=== PATIENT | female | born 1995 | race Caucasian/White ===

== ENCOUNTER 2025-04-03 18:18 | Emergency (ER) | payer OTHER, BC, SELFPAY ==
[2025-04-03 18:21] VITALS: BP 126/84
[2025-04-03 19:08] VITALS: BMI 32.1
--- NOTE | 2025-04-03 19:53 | ED.GENMED ---
History of Present Illness
General
Chief Complaint: Crisis Evaluation
Source: patient
Exam Limitations: none
Time Seen by Provider: 04/03/25 18:42
Nursing documentation reviewed up to this point in time: agreed with
History of Present Illness
History of Present Illness:
29-year-old female with history as noted presents for evaluation of suicidal ideation. Patient reports that she has had significant recent stressors including from her , loss of her job, having to move in with her aunt. She says
that over the past few days she has had suicidal ideations although she denies any specific plan. She denies any homicidal ideations. She denies any hallucinations. She denies any drug or alcohol use.
Review of Systems
Review of Systems
All Other Systems: ROS reviewed and negative except as documented in HPI and ROS
Psychiatric: Reports depression, anxiety and suicidal; Denies hallucinations
Phy Exam
Physical Exam
Physical Exam:
General: Well appearing and non-toxic
HEENT: protecting airway
Neck: appears supple
CV: No evidence of cyanosis
Resp: No accessory muscle use
Abd: Non-distended
Extremities: No deformities
Neuro: Alert
Psych: 'Numb' mood, flattened affect
Skin: Intact
Scores
Heart Failure Risk
Heart Failure Risk Score: Not Applicable
Heart Score for Chest Pain Patients
STEMI patient?: Not applicable
Withdrawal Assessment of Alcohol
Withdrawal Assessment Completed?: Not applicable
Course
Orders/Labs/Results
Orders:
Orders
04/03/25 18:20
1:1 Observation - Suicide/ Violent Behavior As Directed
04/03/25 18:21
Crisis Consult Urgent
Reason for Consult: +SI
04/03/25 18:43
Drug Screen, Urine [Urine Drug Abuse Screen] Urgent
HCG, Urine Qualitative Screen Urgent
Test Result ONCE
Vital Signs
Initial and Last Documented VS:
Initial Vital Signs
Temp Pulse Resp BP Pulse Ox
36.8 C 109 20 126/84 97
04/03/25 18:21 04/03/25 18:21 04/03/25 18:21 04/03/25 18:21 04/03/25 18:21
Last Documented Vital Signs
Temp Pulse Resp BP Pulse Ox
36.8 C 109 20 126/84 97
04/03/25 18:21 04/03/25 18:21 04/03/25 18:21 04/03/25 18:21 04/03/25 19:57
MDM/Problems Addressed
Differential Diagnosis Includes:
Suicidal ideation
MDM/Problems Addressed:
29-year-old female presents with suicidal ideation without specific plan. Case discussed with crisis for consultation. Will monitor on continuous observation. Will send UDS, screening test. Medically cleared for psychiatric treatment.
Patient seen by crisis staff�offered for inpatient versus partial outpatient/intensive outpatient. Patient does not feel she needs inpatient psychiatric treatment feels comfortable with intensive outpatient plan. She does not have a specific plan
and was able to contract for safety. She has family support in the form of her aunt, [id number], [id number]. Crisis provided referral/resources for intensive outpatient treatment. I think this is a reasonable plan; certainly I do not see
any grounds for involuntary psychiatric commitment at this point.
Chronic conditions affecting care:
Depression and anxiety
*Pulse Oximetry
SaO2: 97
Oxygen Mode of Delivery: Room air
Patient hypoxic: no (97%)
*Critical Care Note
Total Time (30-74mins, 75-104mins- exclusive of procedures): Not Applicable
Data Reviewed
Source: patient
Patient Management
Discussion with other providers: Other (Discussed with crisis staff)
ED Attending Note
-
Portions of this chart may have been created with voice recognition software.� Occasional wrong word or��sound alike� substitutions may have occurred due to the inherent limitations of voice recognition software.
Discharge Plan
Departure
Patient with high blood pressure during this ER visit?: No
Discharge Problem:
Depression, Suicidal ideation
Instructions: Depression, Adult (DC), Suicide prevention
Activity Restrictions/Additional Instructions:
Thank you for visiting the Emergency Department at [facility].
1. Please schedule a follow up appointment as directed. Call first thing tomorrow morning to make an appointment.
2. If indicated, please take your medications as instructed and indicated on discharge paperwork.
3. If any of your symptoms do not improve, or persist, or become more severe within 6-12 hours, please return to the emergency department for further care.
4. Please return to the emergency department if you develop a headache, neck pain/stiffness, fever greater than 100.4F, chest pain, shortness of breath, persistent nausea, vomiting, slurred speech, difficulty walking, numbness/tingling, weakness,
signs of infection or any other symptoms that are worrisome to you.
Please call [phone] if you have any questions.
Interventions
Interventions:
*Risk Screen - Suicide Last Done: 04/03/25 18:19
*General Assessment Last Done: 04/03/25 18:24
*Neglect/Abuse Screening Last Done: 04/03/25 18:24
*ED- Fall Risk Assessment Last Done: 04/03/25 18:36
*ED COVID-19 Vaccine History Last Done: 04/03/25 18:24
ED-Psychological Assessment Last Done: 04/03/25 18:32
Discharge Date and Time
Print Language: SAMI
== END 2025-04-03 21:34 | disposition home or self-care (01) ==
LOC: EMR 18:18
PROVIDERS: EMERGENCY PHYSICIAN Emergency Medicine; FAMILY PHYSICIAN Physician Assistant Medical
DX: F32.A Depression, unspecified (principal); R45.851 Suicidal ideations
CPT/HCPCS: 99283